=== PATIENT | female | born 1955 ===

== ENCOUNTER 2021-12-12 07:30 | Inpatient (IN) | payer OTHER ==
[~2021-12-12] VITALS: Ht 162.6 cm; Wt 81.6 kg
[2021-12-12] MEDS ORDERED: FEMARA2.5 MG PO (08:56)
[2021-12-12] MEDS ORDERED: PROPAFENONE HC150 MG PO (08:56)
[2021-12-12] MEDS ORDERED: PLAVIX75 MG PO (08:57)
[2021-12-12] MEDS ORDERED: PEPCID40 MG PO (08:57)
[2021-12-12] MEDS ORDERED: CLONAZEPAM1 MG PO (08:58)
[2021-12-12] MEDS ORDERED: INTEGRA F CAPS1 EAC1 PO (08:59)
[2021-12-12] MEDS ORDERED: D3 + K2 DOTS 11 EACH PO (08:59)
[2021-12-18] MEDS ORDERED: OXYC1TAB9 PO (07:30)
[2021-12-18] MEDS ORDERED: INTEGRA PLUS C1 EACH PO (07:30)
[2021-12-18] MEDS ORDERED: BACTRIM DS TAB1 EACH PO (07:30)
[2021-12-18] MEDS ORDERED: XARELTO10 MG PO (07:30)
== END 2021-12-18 21:16 | DRG 470 ==
LOC: SURH 12-15 07:30 → O/R 12-15 07:37 → SURG 12-15 07:37 → SURH 12-15 10:00 → SURG 12-15 14:07
PROVIDERS: ADMIT Orthopaedic Surgery Sports Medicine; ATTEND Orthopaedic Surgery Sports Medicine
PROC: 0SRC0J9 Replacement of Right Knee Joint with Synthetic Substitute, Cemented, Open Approach (ICD-10-PCS; principal; 2021-12-15 10:00)
DX: M17.11 Unilateral primary osteoarthritis, right knee (principal); Z96.651 Presence of right artificial knee joint; I10 Essential (primary) hypertension; Z20.822 Contact with and (suspected) exposure to COVID-19